=== PATIENT | male | born 1980 | race African-American/Black ===

== ENCOUNTER 2018-04-28 05:45 | Day surgery (SDC) | payer OTHER ==
[2018-04-28] MEDS ORDERED: Versed 2 MG/2 ML Injection IV ONE (05:46)
[2018-04-28] MEDS ORDERED: DIPRIVAN 200 MG/20 ML IV ONE (05:46)
[2018-04-28] MEDS ORDERED: SUBLIMAZE 100 MCG/2 ML IV ONE (05:46)
[2018-04-28] MEDS ORDERED: Lactated Ringers 1,000 ML IV SCH (06:00)
[2018-04-28 06:31] VITALS: O2SAT 100
[2018-04-28 09:02] LABS: BASOPHIL % 0.3 % (0.0-0.4); Basophil (Absolute #) 0.01 (0-0.4); Eosinophil % 5.5 % (0.00-5.0); Eosinophil (Absolute #) 0.21 (0-0.5); Granulocytes % 50.3 % (36.0-66.0); Hemoglobin 14.3 gm/dl (12.5-18.0); Lymphocyte (Absolute #) 1.27 (1.0-4.6); Lymphocytes % 33.2 % (24.0-44.0); Mean Cell Volume 96.8 fl (78-100); Mean Corpuscular Hemoglobin 30.8 pg (26-32); Mean Corpuscular Hgb Concent. 31.8 g/dl (32-36); Monocyte (Absolute #) 0.41 (0.0-1.3); Monocytes % 10.7 % (0.0-12.0); Platelet Count 84 K/mm3 (150-450); Red Blood Count 4.65 M/mm3 (4.1-5.6); Red Cell Distribution Width 13.7 % (11.5-14.0); White Blood Count 3.8 K/mm3 (4.0-10.5)
[2018-04-28 09:18] VITALS: BP 149/87; PULSE 81
[2018-04-28 10:04] LABS: Slide Review 1 YES
--- NOTE | 2018-04-28 10:26 | OP ---
SURGERY DATE/TIME: 04/28/2018 0728 PREOPERATIVE DIAGNOSIS: Anemia. POSTOPERATIVE DIAGNOSES: 1) Gastritis. 2) Transverse colon polyp. PROCEDURES: 1) Esophagogastroduodenoscopy with biopsy. 2) Colonoscopy with biopsy. SURGEON: Dr. Nielson. ANESTHESIA: MAC. Medications were given by the anesthesia department. BRIEF HISTORY: The patient is a 37 year old black male patient presenting now for problems with anemia. He reports also he has family history of his mother having stomach cancer. The patient was appraised of the risks of the procedure including the risk of perforation, phlebitis, untoward reaction to medication, bleeding and missed lesions. The patient verbalized his understanding and desired to have the procedure performed. DESCRIPTION OF PROCEDURE: The patient was given the medications by the anesthesia department. He had continuous pulse oximetry, ECG monitoring, intermittent blood pressure monitoring and tidal CO2 monitoring during the examination. He was placed in the left lateral decubitus position. A bite block was placed. A flexible Olympus gastroscope was used to intubate the oropharynx. A view of the larynx was obtained and was normal. The scope was easily introduced in the esophagus which appeared to be normal throughout its length. The stomach was entered where normal gastric rugal folds were seen. The gastric valentin was suctioned dry and the stomach re-insufflated. The scope was passed along the greater curvature of the stomach to the antrum. There appeared to be some patchy erythema but no erosions or ulcerations. The pylorus encountered and intubated. Duodenum inspected and also found to be slightly erythematous. The scope is then withdrawn towards the stomach. A retroflex view was obtained of the lesser curvature, fundus and cardia regions of the stomach and these appeared to be normal. The scope was then redirected towards the gastric antrum. Biopsies were obtained to rule out the presence of Helicobacter pylori-type organisms. The scope was then removed from the patient. A digital rectal exam was performed and revealed normal anal sphincter tone, no masses and normal prostate. The flexible Olympus pediatric colonoscope was used to intubate the rectum. A view of the colon was developed sequentially to the cecum. Upon insertion and withdrawal was noted a small polyp in the transverse colon this was removed using multiple passes of cold biopsy forceps completely destroying the lesion. Upon insertion and withdrawal including retroflex view in the rectum, no other mucosal lesions were encountered. The scope was removed from the patient who tolerated the procedure well and was sent back to OP recovery in good condition. The prep was noted to be fair to good.
== END 2018-04-28 09:22 | disposition home or self-care (01) ==
LOC: SDC 05:45
PROVIDERS: ATTEND Family Medicine
DX: K29.70 Gastritis, unspecified, without bleeding (principal); D64.9 Anemia, unspecified; K63.5 Polyp of colon; Z80.0 Family history of malignant neoplasm of digestive organs
CPT/HCPCS: 36415; 85025; 88305; J2250; J2704; J3010